=== PATIENT | male | born 1985 | race Caucasian/White ===

== ENCOUNTER 2024-01-28 03:54 | Emergency (ER) | payer MEDICAID, SELFPAY ==
[2024-01-28] VITALS (7 sets, daily range): BP systolic 156–184; BP diastolic 68–87; PULSE 77–86; RESP 18–22; TEMP 36.8; O2SAT 93–94; BMI 46.1
--- NOTE | 2024-01-28 03:58 | XRR_ITS ---
PROCEDURE INFORMATION: Exam: XR Chest Exam date and time: 01/28/2024 4:23 AM Age: 38 years old Clinical indication: Shortness of breath TECHNIQUE: Imaging protocol: Radiologic exam of the chest. Views: 1 view. COMPARISON: CR XR chest 2V* [id number] 05/17/2017 10:55 PM FINDINGS: Lungs: Unremarkable. No consolidation. Pleural spaces: Unremarkable. No pleural effusion. No pneumothorax. Heart/Mediastinum: Unremarkable. No cardiomegaly. Bones/joints: Unremarkable. XR/XR chest 1V portable [id number] IMPRESSION: No acute findings.
--- NOTE | 2024-01-28 04:02 | W.ED.SOB ---
Documented by User: Karla Stevenson MD 01/28/24 05:34 HPI - SOB/Dyspnea General: Chief Complaint: Shortness of Breath/Dyspnea Stated Complaint: SOB Time Seen by Provider: 01/28/24 03:55 History of Present Illness: HPI Narrative: 38-year-old man with a history of morbid obesity who presents emergency room with shortness of breath. He woke up [place] feeling extremely short of breath. EMS reports that he was very tachypneic. He was placed on some oxygen although his O2 sats I believe were normal. He said this came on suddenly. He has no known cardiac or lung history. However he was given a inhaler recently when he had some respiratory issues. No chest pain. No altered mental status. No focal motor deficits. No fevers. No leg swelling. No calf pain. No abdominal pain. No nausea or vomiting. Related Data Previous Rx's Medication Instructions Recorded albuterol sulfate 90 mcg/actuation 2 inh inhalation Q4H PRN shortness 01/28/24 aerosol inhaler of breath or wheezing #6.7 grams azithromycin 250 mg tablet See Rx Instructions PO .COMPLEX #6 01/28/24 (Zithromax Z-Odilon) tabs prednisone 20 mg tablet 60 mg (3 x 20 mg) PO DAILY #20 tabs 01/28/24 Allergies Allergy/AdvReac Type Severity Reaction Status Date / Time morphine Allergy ALGY-Rash Verified 01/28/24 04:10 Review of Systems Narrative: Constitutional symptoms: Negative except as documented in HPI. Skin symptoms: Negative except as documented in HPI. Eye symptoms: Negative except as documented in HPI. ENMT symptoms: Negative except as documented in HPI. Respiratory symptoms: Negative except as documented in HPI. Cardiovascular symptoms: Negative except as documented in HPI. Gastrointestinal symptoms: Negative except as documented in HPI. Genitourinary symptoms: Negative except as documented in HPI. Musculoskeletal symptoms: Negative except as documented in HPI. Neurologic symptoms: Negative except as documented in HPI. Psychiatric symptoms: Negative except as documented in HPI. Endocrine symptoms: Negative except as documented in HPI. Physical Exam Narrative: EXAM NARRATIVE: General: Alert, no acute distress. Skin: Warm, dry. Head: Normocephalic, atraumatic. Neck: Supple, trachea midline. Eye: Extraocular movements are intact. Ears, nose, mouth and throat: Oral mucosa moist. Cardiovascular: Regular rate and rhythm, Normal peripheral perfusion. Respiratory: some expiratory wheeze, mild increased wob, breath sounds are equal, Symmetrical chest wall expansion. Gastrointestinal: Soft, Nontender, Non distended, Normal bowel sounds. Musculoskeletal: Normal ROM, no deformity. Neurological: Alert and oriented to person, place, time, and situation, No focal neurological deficit observed. Psychiatric: Cooperative, appropriate mood & affect. Course Vital Signs: Vital signs: Vital Signs Temperature 98.2 F 01/28/24 03:54 Pulse Rate 77 01/28/24 07:05 Respiratory Rate 18 01/28/24 06:03 Blood Pressure 156/68 01/28/24 07:05 Pulse Oximetry 94 01/28/24 07:05 Oxygen Delivery Me thod Room Air 01/28/24 07:05 Oxygen Flow Rate 1 01/28/24 06:03 MDM - SOB/Dyspnea Medical Decision Making Differential diagnosis for patient with shortness of breath includes but is not limited to and based on the above HPI, review of systems and physical exam: Pneumonia. Bronchitis. Asthma or COPD with acute exacerbation. Acute coronary syndrome / IL. Pulmonary embolism. Anxiety. Congestive heart failure. Viral infections including influenza and Covid-19. Atrial fibrillation. Anxiety. Pleural effusion. Pneumothorax. Workup: Lab work, chest X-ray and EKG ordered to evaluate, rule in and rule out above pathologies EKG: Time 4:06 AM. Rate 78. Normal sinus rhythm, No ST-T changes, no ectopy, normal CO & QRS intervals, This was reviewed and interpreted by myself the ER physician at 4:07 AM. AB.34/56/136. Patient had been on oxygen. Some mild CO2 retention Chest x-ray: No acute process. No infiltrate. No pneumothorax. This was reviewed and interpreted by myself the ER physician. Lab Review: Laboratory results were reviewed and interpreted by myself the emergency room physician. Patient does have mildly elevated D-dimer so CT was ordered. No leukocytosis. No anemia. No renal failure. No elevated liver enzymes. proBNP is normal. Lab Data 01/28/24 04:15 01/28/24 04:15 Labs/Radiology: Radiology Impressions Chest X-Ray 01/28/24 03:58 IMPRESSION: No acute findings. Chest CTA 01/28/24 04:48 IMPRESSION: 1. No acute pulmonary findings. 2. Fatty infiltration of the liver. Laboratory Results WBC 7.39 10^3/uL (3.29-11.43) 01/28/24 04:15 RBC 5.27 10^6/uL (3.85-5.65) 01/28/24 04:15 Hgb 16.50 g/dL (11.27-16.99) 01/28/24 04:15 Hct 49.4 % (37-53) 01/28/24 04:15 MCV 93.7 fl (82-101) 01/28/24 04:15 MCH 31.3 pg (27-33) 01/28/24 04:15 MCHC 33.4 g/dL (30-55) 01/28/24 04:15 RDW 12.4 % (12.1-15.1) 01/28/24 04:15 Plt Count 204 10^3/cmm (157-399) 01/28/24 04:15 MPV 10.4 fL (7.4-10.4) 01/28/24 04:15 Neut % (Auto) 61.7 % 01/28/24 04:15 Lymph % (Auto) 24.0 % 01/28/24 04:15 [place] % (Auto) 8.3 % 01/28/24 04:15 Eos % (Auto) 4.6 % 01/28/24 04:15 Baso % (Auto) 0.7 % 01/28/24 04:15 Neut # (Auto) 4.57 10^3/uL (1.8-7.7) 01/28/24 04:15 Lymph # (Auto) 1.8 10^3/uL (0.8-4.8) 01/28/24 04:15 [place] # (Auto) 0.6 10^3/uL (0.2-0.9) 01/28/24 04:15 Eos # (Auto) 0.3 10^3/uL (0.0-0.8) 01/28/24 04:15 Baso # (Auto) 0.1 10^3/uL (0.0-0.1) 01/28/24 04:15 Nucleated RBC % (auto) 0 % 01/28/24 04:15 Nucleated RBCs # 0.0 /100WBC 01/28/24 04:15 D-Dimer 0.63 ug/mLFEU (0-0.59) H 01/28/24 04:15 Specimen Type Arterial 01/28/24 04:03 Sample Site Radial, right 01/28/24 04:03 ABG pH 7.34 (7.35-7.45) L 01/28/24 04:03 ABG pCO2 56.1 mmHg (35-45) H 01/28/24 04:03 ABG pO2 136.0 mmHg (80.0-100.0) H 01/28/24 04:03 ABG HCO3 30.5 mmol/L (22-26) H 01/28/24 04:03 ABG O2 Saturation 99.6 01/28/24 04:03 ABG Base Excess 3.0 mmol/L (-2.0-2.0) H 01/28/24 04:03 Leo Test Pos 01/28/24 04:03 Hematocrit 51.0 % (42-52) 01/28/24 04:03 Hgb O2 Saturation 93.3 % (95-100) L 01/28/24 04:03 Carboxyhemoglobin 6.1 %THgb (0.4-20.1) 01/28/24 04:03 Methemoglobin 0.2 % (0.4-1.5) L 01/28/24 04:03 Total Hemoglobin 16.6 g/dL (14-18) 01/28/24 04:03 Sodium 135.0 mmol/L (131-143) 01/28/24 04:03 Potassium 4.2 mmol/L (3.5-5.0) 01/28/24 04:03 Glucose 346.0 mg/dL (70-115) H 01/28/24 04:03 Ionized Calcium 1.3 mmol/L (1.1-1.4) 01/28/24 04:03 O2 Delivery Device Room air 01/28/24 04:03 Adult Specialist ID [email or web address] 01/28/24 04:03 Sodium 133 mmol/L (136-145) L 01/28/24 04:15 Potassium 4.4 mmol/L (3.5-5.1) 01/28/24 04:15 Chloride 96 mmol/L (98-107) L 01/28/24 04:15 Carbon Dioxide 27 mmol/L (22-29) 01/28/24 04:15 Anion Gap 14.4 (5-19) 01/28/24 04:15 BUN 9 mg/dL (6-20) 01/28/24 04:15 Creatinine 0.8 mg/dL (0.7-1.2) 01/28/24 04:15 GFR Calculation 107.6 mL/min (90-130) 01/28/24 04:15 Glucose 373 mg/dL (65-115) H 01/28/24 04:15 Calculated Osmolality 290 mOsm/kg (285-295) 01/28/24 04:15 Lactic Acid 2.1 mmol/L (0.5-2.2) 01/28/24 04:15 Calcium 9.1 mg/dL (8.5-10.5) 01/28/24 04:15 Total Bilirubin 0.4 mg/dL (0.15-1.2) 01/28/24 04:15 AST 33 U/L (0-40) 01/28/24 04:15 ALT 40 U/L (0-41) 01/28/24 04:15 Alkaline Phosphatase 132 U/L (40-130) H 01/28/24 04:15 Troponin T Baseline 8 ng/L (0-15) 01/28/24 04:15 Troponin T 120 Minute 7.32 ng/L (0-15) 01/28/24 06:00 Delta Troponin T -0.68 ABS# (0-10) L 01/28/24 06:00 C-Reactive Protein 9.0 mg/L (0.0-4.9) H 01/28/24 04:15 NT-Pro-B Natriuret Pep < 36 pg/mL (0-125) 01/28/24 04:15 Total Protein 6.8 g/dL (6.6-8.7) 01/28/24 04:15 Albumin 4.1 g/dL (3.5-5.2) 01/28/24 04:15 Globulin 2.7 g/dL (1.3-4.6) 01/28/24 04:15 Procalcitonin 0.14 ng/mL (0-0.5) 01/28/24 04:15 SARS-CoV-2 Ag (Rapid) negative (Negative) 01/28/24 04:19 Discharge Plan Discharge Patient Disposition: Home Clinical Impression: Breath shortness, Wheeze, Tobacco dependence Prescriptions: New Zithromax Z-Odilon 250 mg tablet See Rx Instructions .ROUTE .COMPLEX Qty: 6 0RF Rx Instructions: For 250 mg dose pack: take 500 mg today (day 1), then 250 mg for 4 days (days 2-5) prednisone 20 mg tablet 60 mg PO DAILY Qty: 20 0RF Rx Instructions: 3 tabs (60 mg) x 3 days. 2 tabs (40 mg) x 3 days. 1 tab (20 mg) x 3 days. 1/2 tab (10 mg) x 4 days albuterol sulfate 90 mcg/actuation HFA aerosol inhaler 2 inh inhalation Q4H PRN (Reason: shortness of breath or wheezing) Qty: 6.7 0RF Rx Instructions: Please provide patient with a spacer Discharge Orders: Discharge ED (Routine); Ordered 01/28/24 Ordered By: Remigio Draper Referrals: Chinmay Romero MD [Family Provider] - Discharge Diet: Usual diet Discharge Activity: Increase activity as tolerated Patient Instructions: Opioid Safety, Pain Management Activity Restrictions/Additional Instructions: Thank you for choosing [facility] for your healthcare needs today. Please realize this is an emergency room and that we are providing you with a medical screening exam and this may not be complete and all inclusive of all the testing and or work up that you may need to determine your ailment or severity of your illness. You have been screened and evaluated and felt safe for discharge. Health conditions do change or evolve sometimes and as such it is important that you follow up with your Primary Doctor to be re checked, 3-5 days is a general good time frame for follow up. You are always welcome to return to the ED for re assessment if your symptoms are worsening or you have new concerns Sign Out Sign Out Data: Patient Sign Out occurred on 01/28/24 at 05:49. Patient's care was discussed, and care was transferred from Karla Stevenson MD to Remigio Draper DO. Coding Level of Care Code ED Welding Machine Operator [place] for Chg Fwd Documented by User: Remigio Draper DO 01/28/24 07:29 HPI - SOB/Dyspnea General: Chief Complaint: Shortness of Breath/Dyspnea Stated Complaint: SOB Time Seen by Provider: 01/28/24 03:55 Related Data Previous Rx's Medication Instructions Recorded albuterol sulfate 90 mcg/actuation 2 inh inhalation Q4H PRN shortness 01/28/24 aerosol inhaler of breath or wheezing #6.7 grams azithromycin 250 mg tablet See Rx Instructions PO .COMPLEX #6 01/28/24 (Zithromax Z-Odilon) tabs prednisone 20 mg tablet 60 mg (3 x 20 mg) PO DAILY #20 tabs 01/28/24 Allergies Allergy/AdvReac Type Severity Reaction Status Date / Time morphine Allergy ALGY-Rash Verified 01/28/24 04:10 Course Vital Signs: Vital signs: Vital Signs Temperature 98.2 F 01/28/24 03:54 Pulse Rate 77 01/28/24 07:05 Respiratory Rate 18 01/28/24 06:03 Blood Pressure 156/68 01/28/24 07:05 Pulse Oximetry 94 01/28/24 07:05 Oxygen Delivery Me thod Room Air 01/28/24 07:05 Oxygen Flow Rate 1 01/28/24 06:03 MDM - SOB/Dyspnea Medical Decision Making Differential diagnosis for patient with shortness of breath includes but is not limited to and based on the above HPI, review of systems and physical exam: Pneumonia. Bronchitis. Asthma or COPD with acute exacerbation. Acute coronary syndrome / IL. Pulmonary embolism. Anxiety. Congestive heart failure. Viral infections including influenza and Covid-19. Atrial fibrillation. Anxiety. Pleural effusion. Pneumothorax. Workup: Lab work, chest X-ray and EKG ordered to evaluate, rule in and rule out above pathologies EKG: Time 4:06 AM. Rate 78. Normal sinus rhythm, No ST-T changes, no ectopy, normal CO & QRS intervals, This was reviewed and interpreted by myself the ER physician at 4:07 AM. AB.34/56/136. Patient had been on oxygen. Some mild CO2 retention Chest x-ray: No acute process. No infiltrate. No pneumothorax. This was reviewed and interpreted by myself the ER physician. Lab Review: Laboratory results were reviewed and interpreted by myself the emergency room physician. Patient does have mildly elevated D-dimer so CT was ordered. No leukocytosis. No anemia. No renal failure. No elevated liver enzymes. proBNP is normal. Care assumed at change of shift. Patient had a mildly elevated D-dimer CT of the chest did not show any PE. Chest x-ray did not show any pneumonia. He is not having any further wheezing on repeat exam lungs are clear. Patient has a normal BNP there is no leukocytosis. He is complaining of have something getting stuck when he is coughing. Discharge home with steroid taper albuterol and Zithromax. Continue his current medications. Follow-up with his primary care if not improving Lab Data 01/28/24 04:15 01/28/24 04:15 Labs/Radiology: Radiology Impressions Chest X-Ray 01/28/24 03:58 IMPRESSION: No acute findings. Chest CTA 01/28/24 04:48 IMPRESSION: 1. No acute pulmonary findings. 2. Fatty infiltration of the liver. Laboratory Results WBC 7.39 10^3/uL (3.29-11.43) 01/28/24 04:15 RBC 5.27 10^6/uL (3.85-5.65) 01/28/24 04:15 Hgb 16.50 g/dL (11.27-16.99) 01/28/24 04:15 Hct 49.4 % (37-53) 01/28/24 04:15 MCV 93.7 fl (82-101) 01/28/24 04:15 MCH 31.3 pg (27-33) 01/28/24 04:15 MCHC 33.4 g/dL (30-55) 01/28/24 04:15 RDW 12.4 % (12.1-15.1) 01/28/24 04:15 Plt Count 204 10^3/cmm (157-399) 01/28/24 04:15 MPV 10.4 fL (7.4-10.4) 01/28/24 04:15 Neut % (Auto) 61.7 % 01/28/24 04:15 Lymph % (Auto) 24.0 % 01/28/24 04:15 [place] % (Auto) 8.3 % 01/28/24 04:15 Eos % (Auto) 4.6 % 01/28/24 04:15 Baso % (Auto) 0.7 % 01/28/24 04:15 Neut # (Auto) 4.57 10^3/uL (1.8-7.7) 01/28/24 04:15 Lymph # (Auto) 1.8 10^3/uL (0.8-4.8) 01/28/24 04:15 [place] # (Auto) 0.6 10^3/uL (0.2-0.9) 01/28/24 04:15 Eos # (Auto) 0.3 10^3/uL (0.0-0.8) 01/28/24 04:15 Baso # (Auto) 0.1 10^3/uL (0.0-0.1) 01/28/24 04:15 Nucleated RBC % (auto) 0 % 01/28/24 04:15 Nucleated RBCs # 0.0 /100WBC 01/28/24 04:15 D-Dimer 0.63 ug/mLFEU (0-0.59) H 01/28/24 04:15 Specimen Type Arterial 01/28/24 04:03 Sample Site Radial, right 01/28/24 04:03 ABG pH 7.34 (7.35-7.45) L 01/28/24 04:03 ABG pCO2 56.1 mmHg (35-45) H 01/28/24 04:03 ABG pO2 136.0 mmHg (80.0-100.0) H 01/28/24 04:03 ABG HCO3 30.5 mmol/L (22-26) H 01/28/24 04:03 ABG O2 Saturation 99.6 01/28/24 04:03 ABG Base Excess 3.0 mmol/L (-2.0-2.0) H 01/28/24 04:03 Leo Test Pos 01/28/24 04:03 Hematocrit 51.0 % (42-52) 01/28/24 04:03 Hgb O2 Saturation 93.3 % (95-100) L 01/28/24 04:03 Carboxyhemoglobin 6.1 %THgb (0.4-20.1) 01/28/24 04:03 Methemoglobin 0.2 % (0.4-1.5) L 01/28/24 04:03 Total Hemoglobin 16.6 g/dL (14-18) 01/28/24 04:03 Sodium 135.0 mmol/L (131-143) 01/28/24 04:03 Potassium 4.2 mmol/L (3.5-5.0) 01/28/24 04:03 Glucose 346.0 mg/dL (70-115) H 01/28/24 04:03 Ionized Calcium 1.3 mmol/L (1.1-1.4) 01/28/24 04:03 O2 Delivery Device Room air 01/28/24 04:03 Adult Specialist ID [email or web address] 01/28/24 04:03 Sodium 133 mmol/L (136-145) L 01/28/24 04:15 Potassium 4.4 mmol/L (3.5-5.1) 01/28/24 04:15 Chloride 96 mmol/L (98-107) L 01/28/24 04:15 Carbon Dioxide 27 mmol/L (22-29) 01/28/24 04:15 Anion Gap 14.4 (5-19) 01/28/24 04:15 BUN 9 mg/dL (6-20) 01/28/24 04:15 Creatinine 0.8 mg/dL (0.7-1.2) 01/28/24 04:15 GFR Calculation 107.6 mL/min (90-130) 01/28/24 04:15 Glucose 373 mg/dL (65-115) H 01/28/24 04:15 Calculated Osmolality 290 mOsm/kg (285-295) 01/28/24 04:15 Lactic Acid 2.1 mmol/L (0.5-2.2) 01/28/24 04:15 Calcium 9.1 mg/dL (8.5-10.5) 01/28/24 04:15 Total Bilirubin 0.4 mg/dL (0.15-1.2) 01/28/24 04:15 AST 33 U/L (0-40) 01/28/24 04:15 ALT 40 U/L (0-41) 01/28/24 04:15 Alkaline Phosphatase 132 U/L (40-130) H 01/28/24 04:15 Troponin T Baseline 8 ng/L (0-15) 01/28/24 04:15 Troponin T 120 Minute 7.32 ng/L (0-15) 01/28/24 06:00 Delta Troponin T -0.68 ABS# (0-10) L 01/28/24 06:00 C-Reactive Protein 9.0 mg/L (0.0-4.9) H 01/28/24 04:15 NT-Pro-B Natriuret Pep < 36 pg/mL (0-125) 01/28/24 04:15 Total Protein 6.8 g/dL (6.6-8.7) 01/28/24 04:15 Albumin 4.1 g/dL (3.5-5.2) 01/28/24 04:15 Globulin 2.7 g/dL (1.3-4.6) 01/28/24 04:15 Procalcitonin 0.14 ng/mL (0-0.5) 01/28/24 04:15 SARS-CoV-2 Ag (Rapid) negative (Negative) 01/28/24 04:19 All radiology interpretation(s) finalized by discharge Discharge Plan Discharge Patient Disposition: Home Clinical Impression: Breath shortness, Wheeze, Tobacco dependence Prescriptions: New Zithromax Z-Odilon 250 mg tablet See Rx Instructions .ROUTE .COMPLEX Qty: 6 0RF Rx Instructions: For 250 mg dose pack: take 500 mg today (day 1), then 250 mg for 4 days (days 2-5) prednisone 20 mg tablet 60 mg PO DAILY Qty: 20 0RF Rx Instructions: 3 tabs (60 mg) x 3 days. 2 tabs (40 mg) x 3 days. 1 tab (20 mg) x 3 days. 1/2 tab (10 mg) x 4 days albuterol sulfate 90 mcg/actuation HFA aerosol inhaler 2 inh inhalation Q4H PRN (Reason: shortness of breath or wheezing) Qty: 6.7 0RF Rx Instructions: Please provide patient with a spacer Discharge Orders: Discharge ED (Routine); Ordered 01/28/24 Ordered By: Remigio Draper Referrals: Chinmay Romero MD [Family Provider] - Discharge Diet: Usual diet Discharge Activity: Increase activity as tolerated Patient Instructions: Opioid Safety, Pain Management Activity Restrictions/Additional Instructions: Thank you for choosing [facility] for your healthcare needs today. Please realize this is an emergency room and that we are providing you with a medical screening exam and this may not be complete and all inclusive of all the testing and or work up that you may need to determine your ailment or severity of your illness. You have been screened and evaluated and felt safe for discharge. Health conditions do change or evolve sometimes and as such it is important that you follow up with your Primary Doctor to be re checked, 3-5 days is a general good time frame for follow up. You are always welcome to return to the ED for re assessment if your symptoms are worsening or you have new concerns Sign Out Sign Out Data: Patient Sign Out occurred on 01/28/24 at 05:49. Patient's care was discussed, and care was transferred from Karla Stevenson MD to Remigio Draper DO. Coding Level of Care Code ED Welding Machine Operator [place] for Bertrand Perez
[2024-01-28] MEDS: ipratropium-albuterol 3 mL Neb INHALATION (04:05)
[2024-01-28] MEDS: albuterol 2.5 mg/3 mL Neb INHALATION (04:05)
--- NOTE | 2024-01-28 04:06 | ECG_ITS ---
[facility] Test Date: 2024-01-28 Pat Name: Dom Echevarria Department: Room: Gender: Male Head Of Maintenance: : 1985 Requested By: Karla Garnett Order Number: [id number] Cormier MD: Carl Romero M.D. Measurements Intervals [place] Rate: 78 P: 56 RI: 153 QRS: 96 QRSD: 110 T: 57 QT: 348 QTc: 399 Interpretive Statements SINUS RHYTHM BORDERLINE RIGHT AXIS DEVIATION [QRS AXIS > 90] INCOMPLETE RIGHT BUNDLE BRANCH BLOCK [90+ ms QRS DURATION, TERMINAL R IN V1/V2, 40+ ms S IN I/aVL/V4/V5/V6] Compared to ECG 09/05/2017 00:55:42 Incomplete right bundle-branch block now present Electronically Signed On 01-28-2024 7:37:43 CDT by Carl Romero M.D. [id number]
[2024-01-28 04:16] LABS: Blood Gas Allen Test Pos; Blood Gas Sample Site Radial, right; Blood Gas Sample Type Arterial
[2024-01-28] MEDS: methylPREDNISolone sod succ 125 mg/2 mL INJ IVP (04:21)
[2024-01-28 04:30] LABS: Basophils # 0.1 10^3/uL (0.0-0.1); Basophils % 0.7 %; Eosinophils # 0.3 10^3/uL (0.0-0.8); Eosinophils % 4.6 %; Hematocrit 49.4 % (37-53); Lymphocytes # 1.8 10^3/uL (0.8-4.8); Mean Corpuscular HGB Conc 33.4 g/dL (30-55); Mean Corpuscular Hemoglobin 31.3 pg (27-33); Mean Corpuscular Volume 93.7 fl (82-101); Mean Platelet Volume 10.4 fL (7.4-10.4); Monocytes # 0.6 10^3/uL (0.2-0.9); Monocytes % 8.3 %; Neutrophils # 4.57 10^3/uL (1.8-7.7); Neutrophils % 61.7 %; Nucleated Red Blood Cells % 0 %; Platelet Count 204 10^3/cmm (157-399); Red Blood Count 5.27 10^6/uL (3.85-5.65); Red Cell Distribution Width 12.4 % (12.1-15.1); White Blood Count 7.39 10^3/uL (3.29-11.43)
[2024-01-28 04:45] LABS: D Dimer 0.63 ug/mLFEU (0-0.59)
[2024-01-28 04:47] LABS: Lactic Sepsis W/Reflex 2.1 mmol/L (0.5-2.2)
[2024-01-28 04:48] LABS: Troponin(5th) Baseline 8 ng/L (0-15)
--- NOTE | 2024-01-28 04:48 | CTR_ITS ---
PROCEDURE INFORMATION: Exam: CTA Chest With Contrast Exam date and time: 01/28/2024 5:14 AM Age: 38 years old Clinical indication: Pain; Chest pressure and on breathing; Additional info: Hypoxemia, tachycardia TECHNIQUE: Imaging protocol: Computed tomographic angiography of the chest with contrast. Exam focused on the arteries. 3D rendering (Not supervised by radiologist): MIP and/or 3D reconstructed images were created by the technologist. Radiation optimization: All CT scans at this facility use at least one of these dose optimization techniques: automated exposure control; mA and/or kV adjustment per patient size (includes targeted exams where dose is matched to clinical indication); or iterative reconstruction. Contrast material: OMNI 350; Contrast volume: 90 ml; Contrast route: INTRAVENOUS (IV); COMPARISON: CR (CHEST, ) 01/28/2024 4:23 AM RADIATION DOSE METRICS: Total DLP (mGy-cm): 564.17 FINDINGS: Pulmonary arteries: Normal. No pulmonary emboli. Aorta: Unremarkable. No aortic aneurysm. No aortic dissection. Lungs: Unremarkable. No consolidation. No masses. Pleural spaces: Unremarkable. No pneumothorax. No pleural effusion. Heart: Unremarkable. No cardiomegaly. No pericardial effusion. Lymph nodes: Unremarkable. No enlarged lymph nodes. Liver: There is diffuse fatty infiltration of the liver. The liver is otherwise normal. Gallbladder and biliary ducts: There are surgical clips within the gallbladder fossa. Bones/joints: Unremarkable. No acute fracture. Soft tissues: Unremarkable. CT/CT angio chest PE protcl [id number] IMPRESSION: 1. No acute pulmonary findings. 2. Fatty infiltration of the liver.
[2024-01-28 04:52] LABS: SARS Covid-2 Antigen negative (Negative)
[2024-01-28 04:58] LABS: NT Pro B Type Natriuretic Pept < 36 pg/mL (0-125); Procalcitonin 0.14 ng/mL (0-0.5)
[2024-01-28 05:09] LABS: Alanine Aminotransferase 40 U/L (0-41); Albumin Level 4.1 g/dL (3.5-5.2); Alkaline Phosphatase 132 U/L (40-130); Anion Gap 14.4 (5-19); Aspartate Amino Transferase 33 U/L (0-40); Blood Urea Nitrogen 9 mg/dL (6-20); Calcium 9.1 mg/dL (8.5-10.5); Carbon Dioxide 27 mmol/L (22-29); Chloride 96 mmol/L (98-107); Creatinine Clr Calc Pharmacy 195.4119; Globulin 2.7 g/dL (1.3-4.6); Glomerular Filtration Rate 107.6 mL/min (90-130); Glucose 373 mg/dL (65-115); Osmolality Calculated 290 mOsm/kg (285-295); Potassium 4.4 mmol/L (3.5-5.1); Sodium 133 mmol/L (136-145); Total Bilirubin 0.4 mg/dL (0.15-1.2); Total Protein 6.8 g/dL (6.6-8.7)
[2024-01-28] MEDS: iohexol 350 mg/mL 500 mL Btl (per mL) IV (05:25)
--- NOTE | 2024-01-28 06:01 | ECG_ITS ---
[facility] Test Date: 2024-01-28 Pat Name: Dom Echevarria Department: Room: Gender: Male Animal Sitter: : 1985 Requested By: Karla Garnett Order Number: [id number] Casa MD: Carl Romero M.D. Measurements Intervals [place] Rate: 77 P: 51 OR: 156 QRS: 94 QRSD: 109 T: 60 QT: 350 QTc: 396 Interpretive Statements SINUS RHYTHM BORDERLINE RIGHT AXIS DEVIATION [QRS AXIS > 90] INCOMPLETE RIGHT BUNDLE BRANCH BLOCK [90+ ms QRS DURATION, TERMINAL R IN V1/V2, 40+ ms S IN I/aVL/V4/V5/V6] Compared to ECG 01/28/2024 04:06:14 No significant changes Electronically Signed On 01-28-2024 7:40:23 CDT by Carl Romero M.D. [id number]
[2024-01-28 06:15] LABS: Reflex Lactate Order REFLEX LACTIC ORDERD
[2024-01-28 06:23] LABS: Troponin 5 2HR 7.32 ng/L (0-15); Troponin 5 2HR Delta -0.68 ABS# (0-10)
[2024-01-28 08:49] LABS: ABG PH Result 7.31 (7.35-7.45); Arterial Blood Gas Hematocrit 41.5 % (42-52); Blood Gas Operator Identificat Anonymous; Ionized Calcium Level - ABG 1.2 mmol/L (1.1-1.4); Total Hemoglobin 13.5 g/dL (14-18)
[2024-01-28 08:55] LABS: ABG PCO2 51.7 mmHg (35-45); Base Excess ABG -0.8 mmol/L (-2.0-2.0); Carboxyhemoglobin 2.4 %THgb (0.4-20.1); HCO3 ABG 26.2 mmol/L (22-26); HGB O2 Sat 56.4 % (95-100); Oxygen Saturation ABG 57.9
== END 2024-01-28 07:29 | disposition home or self-care (01) ==
PROVIDERS: Emergency Medicine; Emergency Provider Family Medicine; PCP Family Medicine
DX: R06.02 Shortness of breath (principal); R06.2 Wheezing; Z11.52 Encounter for screening for COVID-19; F17.200 Nicotine dependence, unspecified, uncomplicated
CPT/HCPCS: 36415; 36600; 71045; 71275; 80051; 80053; 82330; 82805; 83605; 83880; 84145; 84484; 85025; 85378; 86140; 87040; 87426; 93005; 94640; 96374; 99285; J2919; J7613; Q9967